=== PATIENT | male | born 1945 | race Caucasian/White ===

== ENCOUNTER 2023-10-05 14:17 | Outpatient (AMB) | payer BC, SELFPAY ==
--- NOTE | 2023-10-05 14:27 | MHC.PC.OV ---
Vital Signs 10/05/23 14:39 Height 5 ft 6.54 in Weight 155 lb 6 oz BMI 24.7 BP 106/46 L Blood Pressure Location Lt radial Position Sitting Respiration 16 Pulse 60 Pulse Source Pulse Oximeter Temp 97.4 F Temp Source Oral Pulse Oximetry (%) 97 Oxygen Delivery Method Room Air Intake Visit Reasons: Establish Care Intake Note: New patient visit. 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: No Allergies No Known Allergies Allergy (Verified 10/05/23 14:32) Medication List - Last Reconciled 10/05/23 by Jonelle Billingsley MD atenolol 50 mg PO DAILY atorvastatin 40 mg PO DAILY biotin mcg PO cholecalciferol (vitamin D3) 50 mcg PO DAILY lisinopril-hydrochlorothiazide 20-12.5 mg 1 tab PO DAILY Tobacco use date assessed: 10/05/23 Fall risk assessment: No Falls in past year Last assessed Fall Risk: 10/05/23 Dental Screening Dental Screen Date: 10/05/23 Did you have a dental visit in the last 12 months?: No Did you have a dental problem in the last 6 months where you did not have access to dental care?: No Was dental information given to patient?: Yes HPI HPI Comments History of Present Illness Details 78 y/o male with a past medical history of htn, hld, low vitamin D presenting to establish [facility]. Transferring from [place] pcp. Had some hair loss over the past year-attributes to covid vaccine. He saw a home inspector and tried a few different treatments CV: On atenolol, atorvastatin. denies chest pain, exertional dyspnea. [facility] Medical History (Updated 10/10/23 @ 10:45 by Jonelle Billingsley MD) Cataracts, bilateral Hypercholesteremia HTN (hypertension) Family History (Updated 10/05/23 @ 14:37 by Evette Webber CMA) Mother HTN (hypertension) Father HTN (hypertension) Social History (Updated 10/05/23 @ 14:35 by Evette Webber CMA) Housing: House Patient Tobacco Use Status: Former Tobacco user Years Smoked: 20 e-Cigarette/Vaping Use: Never Used service: No Current occupational status: retired Cognitive needs: No Hearing needs: No Vision needs: No Questionnaire PHQ-9 Over the last 2 weeks, how often have you been bothered by any of the following problems? 1. Little interest or pleasure in doing things: not at all 2. Feeling down, depressed, or hopeless: not at all 3. Trouble falling or staying asleep, or sleeping too much: not at all 4. Feeling tired or having little energy: not at all 5. Poor appetite or overeating: not at all 6. Feeling bad about yourself - or that you are a failure or have let yourself or your family down: not at all 7. Trouble concentrating on things, such as reading the newspaper or watching television: not at all 8. Moving or speaking so slowly that other people could have noticed. Or the opposite - being so fidgety or restless that you have been moving around a lot more than usual: not at all 9. Thoughts that you would be better off or of hurting yourself in some way: not at all Total score: 0 Depression Screening Interpretation: Negative Depression Screening Done: Yes 62185 - PHQ-9 Billing: Yes Source: Developed by Drs. Mc Juarez, Shantelle Roberson, Rk Vinson and colleagues, with an educational hugo from [employer] Thrive Questionnaire Date Thrive assessed: 10/05/23 What is your living situation today?: I have a steady place to live Within the past 12 months, did the food you bought not last and you didn't have the money to get more?: Never true Within the past 12 months, did you worry whether your food would run out before you got money to buy more?: Never true Do you have trouble paying for medicines?: No Do you have trouble getting transportation to medical appointments?: No Do you have trouble paying your heating and electricity bill?: No Do you have trouble taking care of your child, family member or friend?: No Do you have trouble with day-to-day activities such as bathing, preparing meals, shopping, managing finances, etc.?: No Are you currently unemployed and looking for a job?: No Are you interested in more education?: No Please select the resources that you would like help with: None Currently or been in a relationship where the following occur: no concerns reported THRIVE Score: 0 AUDIT C Alcohol Use Questionnaire (AUDIT-C) 1. How often do you have a drink containing alcohol?: 4 or more times a week 2. How many drinks containing alcohol do you have on a typical day when you are drinking?: 1 or 2 3. How often do you have six or more drinks on one occasion?: Never Total Score: 4 AZ-7 AMB Questionnaire AZ-7 Date AZ - 7 assessed: 10/05/23 Feeling nervous, anxious, or on edge: 0 = Not at all Not being able to stop or control worryin = Not at all Worrying too much about different things: 0 = Not at all Trouble relaxin = Not at all Being so restless that it is hard to sit still: 0 = Not at all Becoming easily annoyed or irritable: 0 = Not at all Feeling afraid as if something awful might happen: 0 = Not at all Total AZ-7 score (0-4 normal; 5-9 mild; 10-14 moderate; 15-21 severe): 0 Source: Developed by Drs. Mc Juarez, Shantelle Roberson, Rk Vinson and colleagues, with an educational hugo from [employer] AZ-7 Assessment Billing AZ-7 Assessment Tool: AZ-7 Assessment 10842 Review of Systems Const Details: ROS CONSTITUTIONAL: Denies weight loss, fever and chills. HEENT: Denies changes in vision and hearing. RESPIRATORY: Denies SOB and cough. CV: Denies palpitations and CP GI: Denies abdominal pain, nausea, vomiting and diarrhea. : Denies dysuria and urinary frequency. MSK: Denies new myalgia and joint pain. SKIN: Denies rash and pruritus. NEUROLOGICAL: Denies headache PSYCHIATRIC: Denies recent changes in mood. Physical exam (Primary Care) Vital Signs: Last Vital Signs Temp 97.4 F 10/05/23 14:39 Pulse 60 10/05/23 14:39 Resp 16 10/05/23 14:39 BP 106/46 L 10/05/23 14:39 Pulse Ox 97 10/05/23 14:39 Oxygen Delivery Method Room Air 10/05/23 14:39 PHYSICAL EXAM: GENERAL: Alert and oriented x 3. NAD EYES: EOMI. Anicteric. HENT: Moist mucous membranes. No scleral icterus. No cervical lymphadenopathy. LUNGS: Clear to auscultation bilaterally. CARDIOVASCULAR: Regular rate and rhythm. No murmur. No JVD. ABDOMEN: Soft, non-tender +bs EXTREMITIES: No edema. Non-tender. SKIN: No rashes or lesions. Warm. NEUROLOGIC: No focal neurological deficits. CN II-XII grossly intact PSYCHIATRIC: Cooperative. Appropriate mood and affect BMI result Body Mass Index 24.7 Tobacco/Smoking Status: Tobacco use Status Tobacco use date assessed 10/05/23 10/05/23 14:40 Patient Tobacco Use Status Former Tobacco user 10/05/23 14:40 e-Cigarette/Vaping Use Never Used 10/05/23 14:40 PHQ-9: PHQ-9 Score PHQ-9: Total score 0 10/05/23 15:30 Depression Screening Interpretation: Negative Thrive Assessment: Date of Thrive Assessment Date Thrive assessed 10/05/23 10/05/23 14:48 Currently or been in a relationship where the following occur: no concerns reported Assessment and Plan Assessment & Plan (1) HTN (hypertension): Comment: continue current medications. controlled Code(s): I10 - Essential (primary) hypertension Qualifiers: Hypertension type: primary hypertension Qualified Code(s): I10 - Essential (primary) hypertension (2) Hypercholesteremia: Code(s): E78.00 - Pure hypercholesterolemia, unspecified (3) Hair loss: Comment: declines referral to dermatology Code(s): L65.9 - Nonscarring hair loss, unspecified Orders: Orders Complete Blood Count Auto Diff 10/05/23 E78.00 - Pure hypercholesterolemia, unspecified, I10 - Essential (primary) hypertension, L65.9 - Nonscarring hair loss, unspecified, Z12.5 - Encounter for screening for malignant neoplasm of prostate, Z13.0 - Encounter for screening for diseases of the blood and blood-forming organs and certain disorders involving the immune mechanism Comprehensive Met. Panel 10/05/23 E78.00 - Pure hypercholesterolemia, unspecified, I10 - Essential (primary) hypertension, L65.9 - Nonscarring hair loss, unspecified, Z12.5 - Encounter for screening for malignant neoplasm of prostate, Z13.0 - Encounter for screening for diseases of the blood and blood-forming organs and certain disorders involving the immune mechanism Prostate Specific Antigen 10/05/23 E78.00 - Pure hypercholesterolemia, unspecified, I10 - Essential (primary) hypertension, L65.9 - Nonscarring hair loss, unspecified, Z12.5 - Encounter for screening for malignant neoplasm of prostate, Z13.0 - Encounter for screening for diseases of the blood and blood-forming organs and certain disorders involving the immune mechanism Lipid Panel 10/05/23 E78.00 - Pure hypercholesterolemia, unspecified, I10 - Essential (primary) hypertension, L65.9 - Nonscarring hair loss, unspecified, Z12.5 - Encounter for screening for malignant neoplasm of prostate, Z13.0 - Encounter for screening for diseases of the blood and blood-forming organs and certain disorders involving the immune mechanism Hemoglobin A1c 10/05/23 E78.00 - Pure hypercholesterolemia, unspecified, I10 - Essential (primary) hypertension, L65.9 - Nonscarring hair loss, unspecified, Z12.5 - Encounter for screening for malignant neoplasm of prostate, Z13.0 - Encounter for screening for diseases of the blood and blood-forming organs and certain disorders involving the immune mechanism Referrals Cologuard Test Z12.11 - Encounter for screening for malignant neoplasm of colon, Z12.12 - Encounter for screening for malignant neoplasm of rectum Medications: New atenolol 50 mg PO DAILY 90 tabs 3RF 90 days atorvastatin 40 mg PO DAILY 90 tabs 3RF 90 days lisinopril-hydrochlorothiazide 20-12.5 mg 1 tab PO DAILY 90 tabs 3RF 90 days Coding Level of Care Code Tele New Pt Level 4 (72563) Diagnoses Primary hypertension I10 Hypertension type: primary hypertension Hypercholesteremia E78.00 Hair loss L65.9 Additional Codes AZ-7 Assessment Billing - AZ-7 Assessment Tool: AZ-7 Assessment 76949 ([id number])
[2023-10-05 14:39] VITALS: BP 106/46; PULSE 60; RESP 16; TEMP 36.3; O2SAT 97; BMI 24.7
== END 2023-10-05 15:43 | disposition home or self-care (01) ==
PROVIDERS: PCP Family Medicine; Visit Provider Internal Medicine
DX: I10 Essential (primary) hypertension (principal); E78.00 Pure hypercholesterolemia, unspecified; L65.9 Nonscarring hair loss, unspecified
CPT/HCPCS: 99204

== ENCOUNTER 2024-06-27 10:59 | Outpatient (AMB) | payer BC, SELFPAY ==
--- NOTE | 2024-06-27 11:20 | MHC.OFFWIV ---
Intake Vital Signs 06/27/24 11:22 Height 5 ft 6.54 in Weight 158 lb 8 oz BMI 25.2 BP 126/58 L Blood Pressure Location Rt brachial Position Sitting Respiration 14 Pulse 68 Pulse Source Pulse Oximeter Temp 98.1 F Temp Source Oral Pulse Oximetry (%) 95 Oxygen Delivery Method Room Air Intake Visit Reasons: sore throat Intake Note: Sore throat and cough. Sxs started yesterday. Covid test negative yesterday. 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 The onset of symptoms began yesterday, with the sore throat initially noted as a sharp pain, and the cough described as particularly bothersome and interfering with sleep. The patient has attempted symptomatic relief at home without significant improvement. There is no history of asthma or Chronic Obstructive Pulmonary Disease (COPD). The patient received a flu vaccination this season and reports that his daughter, who resides in the same residence on a different level, is also unwell, suggesting possible exposure to a viral infection. Physical Exam General: Awake, alert. No apparent distress, mildly ill appearing Eyes: Sclera and conjunctiva clear bilaterally Nose: Nares with mod amts clear drainage bilat, turbinates within normal limits, no sinus tenderness with palpation bilaterally. Ears: Tympanic membranes intact and clear L, EAC cerumen unable to see TM on R Throat: Moist mucosa membrane, pharynx within normal limits. + PND rapid strep negative Cardiovascular: Regular rate and rhythm Respiratory: Clear to auscultation bilaterally, dry cough noted during exam Discussion Notes I discussed with the patient that the clinical presentation alongside current trends in the community highly suggests a viral infection such as Influenza A. I suggested the possibility of a confirmatory swab test but noted that empirical treatment is reasonable given local outbreak data. I explained that the antiviral medication, Oseltamivir (Tamiflu), could help by reducing viral replication and thereby potentially lessening symptom duration and minimizing complications like pneumonia, although it may not produce immediate symptom resolution alma rosa to antibiotics. We discussed the management of symptoms, particularly the cough, and the use of a non-dependence forming prescription medication, Benzonatate (Tessalon), as needed for cough relief. I provided guidance on symptomatic care, including saltwater gargles and advised against continued use of Mucinex due to limited efficacy in this scenario. I addressed concerns regarding the safety of Oseltamivir in relation to the patient's known penicillin allergy. Plan Given the patient's symptoms, which are consistent with a viral upper respiratory infection, the treatment plan involves initiation of Oseltamivir Tamiflu) to address suspected influenza and mitigate viral replication. This is based on local epidemiological data indicating high incidence of Influenza A cases. The patient will also take Benzonatate Tessalon) for symptomatic relief of cough, which has been impacting his sleep. The cough is likely due to post-nasal drip, as evidenced by observed mucus during examination. Non-pharmacological measures, such as saltwater gargles, are recommended to improve throat comfort. The patient's penicillin allergy has been considered, and Oseltamivir poses no cross-reactivity risk. RTO edu provided. Patient was informed and verbally consented to the use of an ambient scribe for clinic note documentation during this visit. [facility] Medical History (Updated 06/27/24 @ 12:16 by Ivanna Conner [facility]) Cataracts, bilateral HTN (hypertension) Hypercholesteremia Family History (Updated 10/05/23 @ 14:37 by Evette Webber CMA) Mother HTN (hypertension) Father HTN (hypertension) Social History (Updated 10/05/23 @ 14:35 by Evette Webber CMA) Housing: House Patient Tobacco Use Status: Former Tobacco user Years Smoked: 20 e-Cigarette/Vaping Use: Never Used service: No Current occupational status: retired Cognitive needs: No Hearing needs: No Vision needs: No Physical Exam Vital Signs: Last Vital Signs Temp 98.1 F 06/27/24 11:22 Pulse 68 06/27/24 11:22 Resp 14 06/27/24 11:22 BP 126/58 L 06/27/24 11:22 Pulse Ox 95 06/27/24 11:22 Oxygen Delivery Method Room Air 06/27/24 11:22 BMI result Body Mass Index 25.2 Assessment & Plan Assessment & Plan (1) Nasopharyngitis: Code(s): J00 - Acute nasopharyngitis [common cold] (2) Flu-like symptoms: Code(s): R68.89 - Other general symptoms and signs (3) Cough: Code(s): R05.9 - Cough, unspecified Qualifiers: Cough type: acute Qualified Code(s): R05.1 - Acute cough Plan . Medications: New oseltamivir (Tamiflu) 75 mg PO Q12H 5 days 10 caps 0RF benzonatate 100 mg PO TID 10 days PRN 30 caps 1RF cough Patient Instructions: Patient Instructions - Begin taking Oseltamivir (Tamiflu) as prescribed: one tablet twice a day for five days with food to minimize stomach upset. - Use Benzonatate (Tessalon) as prescribed up to three times daily for cough relief. - Perform saltwater gargles to help clear mucus. - Discontinue use of Mucinex. - Fill prescribed medications at [facility] on [facility]. Influenza (flu) is an infection in the lungs and breathing passages. It is caused by the influenza virus. There are different strains, or types, of the flu virus from year to year. Unlike the common cold, the flu comes on suddenly and the symptoms can be more severe. These symptoms include a cough, congestion, fever, chills, fatigue, aches, and pains. These symptoms may last for a few weeks. Although the flu can make you feel very sick, it usually doesn't cause serious health problems. Home treatment is usually all you need for flu symptoms. But your doctor may prescribe antiviral medicine to prevent other health problems, such as pneumonia, from developing. The risk of other health problems from the flu is highest for young children (under 5), older adults (over 65), women, people with long-term health conditions, people who live in nursing homes or long-term care centres, and indigenous peoples. How can you care for yourself at home? Get plenty of rest. Drink plenty of fluids. If you have to limit fluids because of a health problem, talk with your doctor before you increase the amount of fluids you drink. Take an hmpj-ukh-hmsjbaj pain medicine if needed, such as acetaminophen (Tylenol), ibuprofen (Advil, Motrin), or naproxen (Aleve), to relieve fever, headache, and muscle aches. Read and follow all instructions on the label. No one younger than 18 should take aspirin. It has been linked to Jad syndrome, a serious illness. Take any prescribed medicine exactly as directed. Do not smoke. Smoking can make the flu worse. If you need help quitting, talk to your doctor about stop-smoking programs and medicines. These can increase your chances of quitting for good. If the skin around your nose and lips becomes sore, put some petroleum jelly (such as Vaseline) on the area. To ease coughing: Suck on cough drops or plain, hard candy. Try an rfzn-nxs-hmhzffc cough or cold medicine. Read and follow all instructions on the label. Raise your head at night with an extra pillow. This may help you rest if coughing keeps you awake. To avoid spreading the flu Wash your hands regularly, and keep your hands away from your face. Stay home from school, work, and other public places until you are feeling better and your fever has been gone for at least 24 hours. The fever needs to have gone away on its own without the help of medicine. Ask people living with you to talk to their doctors about preventing the flu. They may get antiviral medicine to keep from getting the flu from you. To prevent the flu in the future, get the flu vaccine every fall. Encourage people living with you to get the vaccine. Cover your mouth when you cough or sneeze. If you can, cough or sneeze into the bend of your elbow, not your hands. When should you call for help? Call 911 anytime you think you may need emergency care. For example, call if: You have severe trouble breathing. You have a seizure. Call your doctor or nurse advice line now or seek immediate medical care if: You have trouble breathing. You have a fever with a stiff neck or a severe headache. You have pain or pressure in your chest or belly. You have a fever or cough that returns after getting better. You feel very sleepy, dizzy, or confused. You are not urinating. You have severe muscle pain. You have severe weakness, or you are unsteady. You have medical conditions that are getting worse Watch closely for changes in your health, and be sure to contact your doctor or nurse advice line if: You do not get better as expected. You are having a problem with your medicine. Coding Level of Care Code Est Pt Level 3 (12836) Diagnoses Nasopharyngitis J00 Flu-like symptoms R68.89 Acute cough R05.1 Cough type: acute
[2024-06-27 11:22] VITALS: BP 126/58; PULSE 68; RESP 14; TEMP 36.7; O2SAT 95; BMI 25.2
== END 2024-06-27 12:39 | disposition home or self-care (01) ==
LOC: HO.HMCWIW 10:59
PROVIDERS: PCP Family Medicine; Visit Provider Nurse Practitioner Family
DX: J00 Acute nasopharyngitis [common cold] (principal); R68.89 Other general symptoms and signs; R05.1 Acute cough

== ENCOUNTER 2025-03-02 11:22 | Outpatient (REF) | payer BC, SELFPAY ==
[2025-03-02 14:39] LABS: MANUAL DIFF FLAG NO
[2025-03-02 14:51] LABS: Hematocrit 38.8 % (42.0-52.0); Hemoglobin 13.0 g/dl (14.0-18.0); Imm Gran Abs Auto 0.02 X10*3/uL (0.00-0.03); Imm Gran Pct Auto 0.3 % (0.0-0.4); Lymphocytes Absolute Auto 1.4 X10*3/uL (1.2-4.9); Mean Corpuscular HGB Conc 33.5 g/dl (31.0-36.0); Mean Corpuscular Hemoglobin 31.1 pg (27.0-33.0); Mean Corpuscular Volume 92.8 fL (80.0-98.0); NRBC Abs Auto 0.000 X10*3/uL (0.0-0.012); NRBC Pct Auto 0.0 /100WBC (0.0-0.2); Platelet Count 237 X10*3/uL (160-400); Red Blood Count 4.18 X10*6/uL (4.60-5.80); White Blood Count 6.9 X10*3/uL (4.8-10.8)
[2025-03-02 16:26] LABS: Folate 10.8 ng/mL (> or = 4.0); Prostate Specific Antigen 2.76 ng/mL (<0.05-4.0); Vitamin B12 355 pg/mL (200-900)
[2025-03-02 17:05] LABS: Alanine Aminotransferase 34 U/L (0-40); Albumin Level 4.8 g/dL (3.5-5.0); Alkaline Phosphatase 58 U/L (39-117); Anion Gap 12 (12-20); Aspartate Amino Transferase 29 U/L (5-37); Blood Urea Nitrogen 20 mg/dL (9-16); Calcium 9.5 mg/dL (8.4-10.2); Carbon Dioxide 25 mmol/L (22-29); Chloride 105 mmol/L (96-108); Cholesterol 170 mg/dL (<200); Estimated Glomerular Filt Rate > 60; HDL Cholesterol 79 mg/dL (>40); Potassium 4.3 mmol/L (3.3-5.1); Sodium 138 mmol/L (135-145); Total Protein 7.3 g/dL (6.5-8.0); Triglycerides 110 mg/dL (<150)
== END 2025-03-02 11:23 | disposition home or self-care (01) ==
LOC: HO.WFDLDS 11:22
PROVIDERS: PCP Internal Medicine; Visit Provider Internal Medicine
DX: Z12.5 Encounter for screening for malignant neoplasm of prostate (principal); I10 Essential (primary) hypertension; E78.00 Pure hypercholesterolemia, unspecified; L65.9 Nonscarring hair loss, unspecified; R20.0 Anesthesia of skin
CPT/HCPCS: 36415; 80053; 80061; 82607; 82746; 83036; 84153; 84443; 85025; 96127

== ENCOUNTER 2025-03-02 11:22 | Outpatient (AMB) | payer BC, SELFPAY ==
--- OUTSIDE RECORDS SUMMARY | 2022-09-03 20:00 | XMS_ITS | Continuity of Care Document ---
Author Organization [facility] Address [address] [facility] [place] [address] Phone Care Team Providers Care Informatics Pharmacist Name Role Phone Hong Huynh Unavailable Unavailable Allergies, Adverse Reactions, Alerts Substance Reaction Status Criticality No Known Drug Allergies Active No I nformation Advance Directives Directive Yes / No Effective Date File Name No Information Encounters Encounter Description Practice Location Reason(s) For Visit Diagnoses Date Provider Providers Copied on Encounter [facility], [address] [place], [id number] , [place] tel: [phone] [address] No Information Aug- 3 Amina Pitts. [facility] [address], [place], [address], [place]. tel: [phone] [facility], [address] [place], [place], [id number] , [place] tel: [phone] [facility] [address] [place] [address] Other secondary cataract, left eye Apr- 3 Amina Pitts. [facility] [address], [place], [address], [place]. tel: [phone] [facility], [address], [place], [id number] , [place] tel: [phone] [address] [place] [facility] Other secondary cataract, left eyePuckering of macula, bilateral Apr-0 3 Rosa Hendrickson. [address] [place], [address], [place]. tel: [phone] [facility], [address], [place], [place], [id number] , [place] tel: [phone] [address] Other secondary cataract, bilateral 2 Amina Pitts. [facility] [address], [place], [address], [place]. tel: [phone] [facility], [address] [place] [address], [place], [id number] , [place] tel: [phone] [address] Myopia, right eyePresbyopiaPresence of intraocular lensRegular astigmatism, bilateral 1 Camilo Wallace. [address] [place] [address], [address], [place]. tel: [phone] [facility], [address] [place] [address], [id number] , [place] tel: [phone] [address] Presence of intraocular lens 1 Camilo Wallace. [address] [place], [address], [place]. tel: [phone] [facility], [address] [place] [address], [place], [id number] , [place] tel: [phone] [facility] Age-related nuclear cataract, left eye 1 Amina Pitts. [facility] [address], [place], [address], [place]. tel: [phone] [facility], [address] [place] [address], [place], [place], [id number] , [place] tel: [phone] [facility] No Information 1 Dwayne Sykes. [address] [place], [address], [place]. tel: [phone] [facility], [address] [place] [address], [id number] , [place] tel: [phone] [facility] Location Age-related nuclear cataract, left eyePresence of intraocular lens 1 [facility] . [facility] [place], [facility], . tel: [phone] [facility], [address] [place], [id number] , [place] tel: [phone] [facility] Location Posterior subcapsular polar age-related cataract, right eyeAge-related nuclear cataract, bilateralPresence of intraocular lensAge-related nuclear cataract, left eyeRegular astigmatism, bilateral 1 [employer] . [facility] [place] [place], [address], [place]. tel: [phone] [facility], [address] [place], [place], [id number] , [place] tel: [phone] [facility] Location Age-related nuclear cataract, bilateralRegular astigmatism, bilateralPosterior subcapsular polar age-related cataract, right eye 1 [employer] . [facility] [place], [facility], . tel: [phone] Family History Family Member Type Diagnosis Age At Onset Problem (finding) No significant family h istory Close relative Problem (finding) No Significant Family History Payers Payer name Insurance type Covered libertarian ID Authoriza tion(s) No Information Social History Type Description Quantity Date Captured Comments Sex Male Smoking Status No Information Chief Complaint And Reason For Visit No Information Reason For Referral Reason For Referral No Information History Of Present Illness Encounter Date Complaint History Of Prese nt Illness No Information Functional Status Date Functional Assessmen t No Information Instructions Date Instruction Additional Infor vivienne Impression/Plan Related to [facility] revealed posterior capsular opacification. Impression/Plan Related to [facility] revealed a macular pucker. Impression/Plan Related to [facility] revealed posterior capsular opacification. Impression/Plan Related to [facility] revealed posterior capsular opacification. Impression/Plan Related to Refra ctive testing reveals astigmatism. Impression/Plan Related to Refra ctive testing reveals myopia (nearsightedness). Impression/Plan Related to Refra ctive testing reveals presbyopia. Impression/Plan Related to Patie nt is pseudophakic. Impression/Plan Related to Patie nt is pseudophakic. Doing well at today's visit. Discussed post operative care and gtt instructions. Call [facility] with [facility]. Impression/Plan Related to [place] revealed moderate senile nuclear cataract. Impression/Plan Related to Diagn osis Description: Pseudophakia of right eye \nDiagnosis Code: V43.1 Impression/Plan Related to Diagn osis Description: Age-related nuclear cataract of left eye \nDiagnosis Code: 366.16 Impression/Plan Related to Diagn osis Description: Regular astigmatism of both eyes \nDiagnosis Code: 367.21 Impression/Plan Related to Diagn osis Description: Age-related nuclear cataract of left eye \nDiagnosis Code: 366.16 Impression/Plan Related to Diagn osis Description: Posterior subcapsular polar age-related cataract of right eye \nDiagnosis Code: 366.14 Impression/Plan Related to Diagn osis Description: Pseudophakia of right eye \nDiagnosis Code: V43.1 Impression/Plan Related to Diagn osis Description: Age-related nuclear cataract of both eyes \nDiagnosis Code: 366.16 Impression/Plan Related to Diagn osis Description: Regular astigmatism of both eyes \nDiagnosis Code: 367.21 Impression/Plan Related to Diagn osis Description: Posterior subcapsular polar age-related cataract of right eye \nDiagnosis Code: 366.14 Impression/Plan Related to Diagn osis Description: Age-related nuclear cataract of both eyes \nDiagnosis Code: 366.16 Assessments Type Assessment Date No Information Patient Care Teams Name Effective Dates (start - stop) Status Members No Information
--- NOTE | 2025-03-02 11:25 | MHC.PC.OV ---
Vital Signs 03/02/25 11:32 Height 5 ft 6.54 in Weight 156 lb 4 oz BMI 24.8 BP 130/58 L Blood Pressure Location Rt brachial Position Sitting Respiration 18 Pulse 56 Pulse Source Pulse Oximeter Temp 97.4 F Temp Source Oral Pulse Oximetry (%) 98 Oxygen Delivery Method Room Air Intake Visit Reasons: Med review , resched Intake Note: med review Allergies No Known Allergies Allergy (Verified 03/02/25 11:29) Tobacco use date assessed: 03/02/25 Dental Screening Dental Screen Date: 10/05/23 Did you have a dental visit in the last 12 months?: No Did you have a dental problem in the last 6 months where you did not have access to dental care?: No Was dental information given to patient?: Yes HPI HPI Comments History of Present Illness Details 79 y/o male with a past medical history of htn, hld, low vitamin D presenting for follow up Had some hair loss over the past year-attributes to covid vaccine. He saw a dining car hop and tried a few different treatments-declines further work up CV: On atenolol, atorvastatin. BP 130/58 denies chest pain, exertional dyspnea. Has some numbness of the fingers, mostly tips. History of spinal arthritis. 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 Non painful Will get flu shot, RSV at pharmacy Declines cologuard. His last one ROS see HPI PHYSICAL EXAM: GENERAL: Alert and oriented x 3. NAD EYES: EOMI. Anicteric. HENT: Moist mucous membranes. No scleral icterus. No cervical lymphadenopathy. LUNGS: Clear to auscultation bilaterally. CARDIOVASCULAR: Regular rate and rhythm. No murmur. No JVD. ABDOMEN: Soft, non-tender +bs EXTREMITIES: No edema. Non-tender. SKIN: No rashes or lesions. Warm. NEUROLOGIC: No focal neurological deficits. CN II-XII grossly intact PSYCHIATRIC: Cooperative. Appropriate mood and affect [facility] Medical History Cataracts, bilateral Hypercholesteremia HTN (hypertension) Family History Mother HTN (hypertension) Father HTN (hypertension) Social History Housing: House Alcohol intake: current Patient Tobacco Use Status: Former Tobacco user Years Smoked: 20 e-Cigarette/Vaping Use: Never Used service: No Current occupational status: retired Cognitive needs: No Hearing needs: No Vision needs: No Questionnaire PHQ-9 Over the last 2 weeks, how often have you been bothered by any of the following problems? 1. Little interest or pleasure in doing things: not at all 2. Feeling down, depressed, or hopeless: not at all 3. Trouble falling or staying asleep, or sleeping too much: not at all 4. Feeling tired or having little energy: not at all 5. Poor appetite or overeating: not at all 6. Feeling bad about yourself - or that you are a failure or have let yourself or your family down: not at all 7. Trouble concentrating on things, such as reading the newspaper or watching television: not at all 8. Moving or speaking so slowly that other people could have noticed. Or the opposite - being so fidgety or restless that you have been moving around a lot more than usual: not at all 9. Thoughts that you would be better off or of hurting yourself in some way: not at all Total score: 0 Depression Screening Interpretation: Negative Depression Screening Done: Yes 64277 - PHQ-9 Billing: Yes Source: Developed by Drs. Mc Juarez, Shantelle Roberson, Rk Vinson and colleagues, with an educational hugo from [employer]. Thrive Questionnaire Date Thrive assessed: 10/05/23 I am a: Patient What is your living situation today?: I have a steady place to live Within the past 12 months, did the food you bought not last and you didn't have the money to get more?: Never true Within the past 12 months, did you worry whether your food would run out before you got money to buy more?: Never true Do you have trouble paying for medicines?: No Do you have trouble getting transportation to medical appointments?: No Do you have trouble paying your heating and electricity bill?: No Do you have trouble taking care of your child, family member or friend?: No Do you have trouble with day-to-day activities such as bathing, preparing meals, shopping, managing finances, etc.?: No Are you currently unemployed and looking for a job?: No Are you interested in more education?: No Please select the resources that you would like help with: None Currently or been in a relationship where the following occur: No concerns reported THRIVE Score: 0 AUDIT C Alcohol Use Questionnaire (AUDIT-C) 1. How often do you have a drink containing alcohol?: 2-4 times a month 2. How many drinks containing alcohol do you have on a typical day when you are drinking?: 1 or 2 3. How often do you have six or more drinks on one occasion?: Never Total Score: 2 AZ-7 AMB Questionnaire AZ-7 Date AZ - 7 assessed: 10/05/23 Feeling nervous, anxious, or on edge: 0 = Not at all Not being able to stop or control worryin = Not at all Worrying too much about different things: 0 = Not at all Trouble relaxin = Not at all Being so restless that it is hard to sit still: 0 = Not at all Becoming easily annoyed or irritable: 0 = Not at all Feeling afraid as if something awful might happen: 0 = Not at all Total AZ-7 score (0-4 normal; 5-9 mild; 10-14 moderate; 15-21 severe): 0 Source: Developed by Drs. Mc Juarez, Shantelle Roberson, Rk Vinson and colleagues, with an educational hugo from [employer]. Physical exam (Primary Care) Vital Signs: Last Vital Signs Temp 97.4 F 03/02/25 11:32 Pulse 56 03/02/25 11:32 Resp 18 03/02/25 11:32 BP 130/58 L 03/02/25 11:32 Pulse Ox 98 03/02/25 11:32 Oxygen Delivery Method Room Air 03/02/25 11:32 BMI result Body Mass Index 24.8 Tobacco/Smoking Status: Tobacco use Status Tobacco use date assessed 03/02/25 03/02/25 11:36 Patient Tobacco Use Status Former Tobacco user 03/02/25 11:36 e-Cigarette/Vaping Use Never Used 03/02/25 11:36 PHQ-9: PHQ-9 Score PHQ-9: Total score 0 03/02/25 11:37 Depression Screening Interpretation: Negative Thrive Assessment: Date of Thrive Assessment Date Thrive assessed 10/05/23 03/02/25 11:36 Currently or been in a relationship where the following occur: No concerns reported Coding Level of Care Code Est Pt Level 4 (10985) Diagnoses Primary hypertension I10 Hypertension type: primary hypertension Hypercholesteremia E78.00 Numbness of hand R20.0 Additional Codes PHQ-9 - 90943 - PHQ-9 Billing: Yes ([id number]) Assessment & Plan Assessment & Plan (1) HTN (hypertension): Comment: continue current medications. controlled Code(s): I10 - Essential (primary) hypertension Category: Medical Qualifiers: Hypertension type: primary hypertension Qualified Code(s): I10 - Essential (primary) hypertension (2) Hypercholesteremia: Code(s): E78.00 - Pure hypercholesterolemia, unspecified Category: Medical (3) Numbness of hand: Code(s): R20.0 - Anesthesia of skin Category: Medical Plan HTN well controlled on current medications Numbness hands CTS, versus cervical radicular versus b12, a1C abnormality. Labs ordered Declines further colon cancer screening Orders: Orders Complete Blood Count Auto Diff Today E78.00 - Pure hypercholesterolemia, unspecified, I10 - Essential (primary) hypertension, L65.9 - Nonscarring hair loss, unspecified Comprehensive Met. Panel Today E78.00 - Pure hypercholesterolemia, unspecified, I10 - Essential (primary) hypertension, L65.9 - Nonscarring hair loss, unspecified Lipid Panel Today E78.00 - Pure hypercholesterolemia, unspecified, I10 - Essential (primary) hypertension, L65.9 - Nonscarring hair loss, unspecified Hemoglobin A1c Today E78.00 - Pure hypercholesterolemia, unspecified, I10 - Essential (primary) hypertension, L65.9 - Nonscarring hair loss, unspecified TSH reflex Free T4 Today L65.9 - Nonscarring hair loss, unspecified Prostate Specific Antigen Today Z12.5 - Encounter for screening for malignant neoplasm of prostate Vitamin B12 and Folate Today R20.0 - Anesthesia of skin
[2025-03-02 11:32] VITALS: BP 130/58; PULSE 56; RESP 18; TEMP 36.3; O2SAT 98; BMI 24.8
== END 2025-03-02 11:51 | disposition home or self-care (01) ==
LOC: HO.HMCFM 11:23
PROVIDERS: PCP Internal Medicine; Visit Provider Internal Medicine
DX: I10 Essential (primary) hypertension (principal); E78.00 Pure hypercholesterolemia, unspecified; R20.0 Anesthesia of skin